=== PATIENT | female | born 2000 | race Caucasian/White ===

== ENCOUNTER 2019-12-30 04:11 | Emergency (ER) | payer OTHER ==
[~2019-12-30] VITALS: Wt 0.1 kg
[2019-12-30 04:14] VITALS: BP 124/80
== END 2019-12-30 05:15 | disposition home or self-care (01) ==
LOC: ER 04:11
DX: O60.03 Preterm labor without delivery, third trimester (principal); Z3A.28 28 weeks gestation of pregnancy